=== PATIENT | male | born 1990 | race Hispanic/Latino ===

== ENCOUNTER 2019-02-12 21:49 | Inpatient (IN) | payer SELFPAY ==
[2019-02-12] MEDS ORDERED: NA CHLORIDE 0.9% 1,000 ML ONE (22:45)
[2019-02-12] MEDS ORDERED: FENTANYL CITR 100 MCG/2 ML ONE ×2 (22:45→23:56)
[2019-02-12 22:55] LABS: Absolute Lymphocytes (CBC) 0.6 K/uL (0.7-4.9); Absolute Monocytes 0.6 K/uL (0.1-1.3); Absolute Neutrophil 12.5 K/uL (1.8-8.0); Basophils % 0.6 % (0-1.3); Eosinophils % 0.7 % (0-4.4); Hematocrit 47.5 % (39.6-49.0); Lymphocytes % 4.2 % (15.3-44.8); MPV 9.7 fL (7.6-11.3); Monocytes % 4.1 % (3.3-12.3)
[2019-02-12 23:37] LABS: Albumin 3.8 g/dL (3.4-5.0); Bilirubin Direct 0.2 mg/dL (0-0.2); Bilirubin Total 0.7 mg/dL (0.2-1.0); Potassium 3.8 mmol/L (3.5-5.1); Protein, Total 7.7 g/dL (6.4-8.2)
[2019-02-12 23:37] LABS: Barbiturates NEGATIVE (NEGATIVE); Benzodiazepines NEGATIVE (NEGATIVE); Cocaine NEGATIVE (NEGATIVE); METHAMPHETAM NEGATIVE (NEGATIVE); Methadone NEGATIVE (NEGATIVE); Opiates NEGATIVE (NEGATIVE); Phencyclidine NEGATIVE (NEGATIVE); THC Cannibis POSITIVE (NEGATIVE)
[2019-02-12 23:40] LABS: Urine Bacteria <20 /HPF (NONE SEEN); Urine Culture Reflex Order NOT NEEDED; Urine RBC NONE SEEN /HPF (NONE SEEN)
[2019-02-12 23:41] LABS: Urine Blood NEGATIVE (NEG); Urine Glucose NEGATIVE (NEG); Urine Protein TRACE (NEG); Urine pH 6.5 (5.0-7.0)
[2019-02-13] MEDS ORDERED: NA CHLORIDE 0.9% 1,000 ML ONE ×2 (00:02→02:10)
[2019-02-13 00:05] LABS: Blood Morphology Comment NOT SEEN (NOT SEEN); Platelet Estimate ADEQ; Urine White Blood Cell Casts OK
[2019-02-13] MEDS ORDERED: ONDANSETRON 4 MG/2 ML VIAL ONE (01:41)
--- NOTE | 2019-02-13 01:48 | ER ---
Nurse's Notes [facility] Name: Mohit Travis Age: 28 yrs Sex: Male : 1990 Arrival Date: 02/12/2019 Time: 21:56 Bed 5 Private MD: Diagnosis: Rhabdomyolysis;Cyclical vomiting, intractable Presentation: 02/12 22:02 Presenting complaint: Patient states: L low back pain that radiates to lower abd with aa1 fever and vomiting since this am. Transition of care: patient was not received from another setting of care. Onset of symptoms was February 12, 2019. Risk Assessment: Do you want to hurt yourself or someone else? Patient reports no desire to harm self or others. Initial Sepsis Screen: Does the patient meet any 2 criteria? No. Patient's initial sepsis screen is negative. Does the patient have a suspected source of infection? No. Patient's initial sepsis screen is negative. Care prior to arrival: None. 22:02 Method Of Arrival: Wheelchair aa1 22:02 Acuity: REJI 3 aa1 Triage Assessment: 22:03 General: Appears in no apparent distress. uncomfortable, Behavior is calm, cooperative, aa1 appropriate for age. Historical: - Allergies: 22:03 No Known Allergies; aa1 - Home Meds: 22:03 None [Active]; aa1 - PMHx: 22:03 rhabdomyolysis; kidney problems; aa1 - PSHx: 22:03 None; aa1 - Immunization history:: Flu vaccine is not up to date. - Social history:: Smoking status: Patient/guardian denies using tobacco. - Ebola Screening: : No symptoms or risks identified at this time. Screenin:58 Abuse screen: Denies threats or abuse. Nutritional screening: No deficits noted. ea Tuberculosis screening: No symptoms or risk factors identified. Fall Risk Assessment: 22:05 General: Appears in no apparent distress. uncomfortable, Behavior is calm, cooperative, rr5 appropriate for age, Reports fever for. Pain: Complains of pain in abdomen Pain radiates to back Pain currently is 10 out of 10 on a pain scale. Quality of pain is described as aching, Pain began gradually, Is intermittent. 22:05 Neuro: Level of Consciousness is awake, alert, obeys commands, Oriented to person, rr5 place, time, situation, Appropriate for age. Cardiovascular: Capillary refill < 3 seconds Patient's skin is warm and dry. Respiratory: Airway is patent Respiratory effort is even, unlabored, Respiratory pattern is regular, symmetrical. GI: Abdomen is distended, obese, Bowel sounds present X 4 quads. Abdomen is tender to palpation. : No signs and/or symptoms were reported regarding the genitourinary system. EENT: No signs and/or symptoms were reported regarding the EENT system. Derm: Skin is intact, Skin temperature is warm. Musculoskeletal: Capillary refill < 3 seconds, Range of motion: intact in all extremities. 23:00 Reassessment: Patient appears in no apparent distress at this time. Patient is alert, rr5 oriented x 3, equal unlabored respirations, skin warm/dry/pink. Patient states symptoms have improved. 02/13 00:00 Reassessment: Patient appears in no apparent distress at this time. Patient is alert, rr5 oriented x 3, equal unlabored respirations, skin warm/dry/pink. went to CT via wheelchair. 00:19 Reassessment: Patient appears in no apparent distress at this time. No changes from rr5 previously documented assessment. back from CT scan. 01:30 Reassessment: Patient appears in no apparent distress at this time. Patient is alert, rr5 oriented x 3, equal unlabored respirations, skin warm/dry/pink. no complaints made. ED provider re examine the patient. 01:50 Reassessment: Patient appears in no apparent distress at this time. Patient is alert, rr5 oriented x 3, equal unlabored respirations, skin warm/dry/pink. patient agreed to stay for admission. 03:00 Reassessment: Patient appears in no apparent distress at this time. asleep on bed rr5 comfortably. 04:20 Reassessment: Patient appears in no apparent distress at this time. Patient and/or cc3 family updated on plan of care and expected duration. Pain level reassessed. Patient is alert, oriented x 3, equal unlabored respirations, skin warm/dry/pink. 05:00 Reassessment: Patient appears in no apparent distress at this time. Patient and/or cc3 family updated on plan of care and expected duration. Pain level reassessed. Patient is alert, oriented x 3, equal unlabored respirations, skin warm/dry/pink. Patient for admission, room available at 416, called for report but was told that the nurse who will receive will just call back. 05:15 Reassessment: Report called to Vinny WINTERS on fourth floor. ea Vital Signs: 02/12 22:03 BP 116 / 71; Pulse 113; Resp 20; Temp 99.8(O); Pulse Ox 99% on R/A; Weight 102.06 kg; aa1 Height 5 ft. 6 in. (167.64 cm); Pain 10/10; 22:58 BP 144 / 59; Pulse 105; Resp 18; Pulse Ox 99% ; ea 23:30 BP 135 / 59; Pulse 107; Resp 17; Pulse Ox 99% ; Pain 8/10; rr5 02/13 00:30 BP 131 / 60; Pulse 110; Resp 17; Pulse Ox 98% on R/A; rr5 02:00 BP 126 / 54; Pulse 95; Resp 17; Temp 99; Pulse Ox 98% on R/A; rr5 03:00 BP 137 / 54; Pulse 98; Resp 17; Temp 99.7; Pulse Ox 99% on R/A; rr5 05:11 BP 116 / 59; Pulse 86; Resp 18 S; Pulse Ox 96% on R/A; cc3 02/12 22:03 Body Mass Index 36.32 (102.06 kg, 167.64 cm) aa1 ED Course: 02/12 21:56 Patient arrived in ED. es 22:02 Triage completed. aa1 22:03 Arm band placed on left wrist. Patient placed in an exam room, on a stretcher. aa1 22:05 Patient has correct armband on for positive identification. Placed in gown. Bed in low rr5 position. Call light in reach. Side rails up X2. Pulse ox on. NIBP on. 22:06 Bo Heart MD is Attending Physician. gs 22:14 Benjy Kim, SINGH is Primary Nurse. rr5 22:40 Initial lab(s) drawn, by me, sent to lab. Inserted saline lock: 20 gauge in right rr5 forearm, using aseptic technique. Blood collected. 23:38 Notified ED physician of a critical lab result(s). cpk of 1538. fc 02/13 00:23 CT Abd/Pelvis - W/Contrast In Process Unspecified. EDMS 01:45 Marci Cummings MD is Hospitalizing Provider. gs 02:55 Awaiting bed assignment. rr5 05:16 No provider procedures requiring assistance completed. Patient admitted, IV remains in ea place. Administered Medications: 02/12 22:40 Drug: NS 0.9% 1000 ml Route: IV; Rate: 1 bolus; Site: right forearm; rr5 23:30 Follow up: Response: No adverse reaction; IV Status: Completed infusion; IV Intake: rr5 1000ml 22:41 Drug: fentaNYL (PF) 50 mcg Route: IVP; Site: right forearm; rr5 23:30 Follow up: Response: No adverse reaction rr5 23:43 Drug: fentaNYL (PF) 50 mcg Route: IVP; Site: right antecubital; ea 02/13 01:00 Follow up: Response: No adverse reaction rr5 02/12 23:49 Drug: NS 0.9% 1000 ml Route: IV; Rate: 1 bolus; Site: right antecubital; ea 02/13 01:15 Follow up: Response: No adverse reaction; IV Status: Completed infusion; IV Intake: rr5 1000ml 01:34 Drug: Zofran 4 mg Route: IVP; Site: right antecubital; ea 02:30 Follow up: Response: No adverse reaction rr5 02:00 Drug: NS 0.9% 1000 ml Route: IV; Rate: 150 ml/hr; Site: right forearm; rr5 05:17 Follow up: IV Status: Infusion continued upon admission ea Intake: 02/12 23:30 IV: 1000ml; Total: 1000ml. rr5 02/13 01:15 IV: 1000ml; Total: 2000ml. rr5 Output: 02/12 23:00 Urine: 200ml (Voided); Total: 200ml. rr5 02/13 00:35 Urine: 350ml (Voided); Total: 550ml. rr5 Outcome: 01:46 Decision to Hospitalize by Provider. gs 02:00 Admitted to Med/surg accompanied by tech, room 416, on monitor, with chart, Report ea called to Vinny WINTERS 02:00 Condition: stable 02:00 Instructed on the need for admit. 05:32 Patient left the ED. cc3 Signatures: Dispatcher [employer] Nandini Mortensen RN RN aa1 KwanFarheen valencia Felicia, RN RN fc Tatiana Edouard RN RN ea Bo Heart MD MD Marcia Monsivais 3 Benjy Kim RN RN rr5
--- NOTE | 2019-02-13 01:48 | EDPHYS ---
Physician Documentation [facility] Name: Mohit Travis Age: 28 yrs Sex: Male : 1990 Arrival Date: 02/12/2019 Time: 21:56 Bed 5 Private MD: ED Physician Bo Heart HPI: 02/13 01:48 This 28 yrs old Male presents to ER via Wheelchair with complaints of gs Abdominal Pain, Back Pain, ABD SWELLING. 01:48 The patient presents with abdominal pain that is diffuse. Onset: The symptoms/episode gs began/occurred this morning. The symptoms do not radiate. Associated signs and symptoms: Pertinent positives: vomiting. The symptoms are described as crampy. Modifying factors: The symptoms are alleviated by nothing, the symptoms are aggravated by nothing. Severity of pain: At its worst the pain was moderate in the emergency department the pain is unchanged. The patient has experienced similar episodes in the past, a few times. generalized body aches same with previous rhabdo. Historical: - Allergies: 02/12 22:03 No Known Allergies; aa1 - Home Meds: 22:03 None [Active]; aa1 - PMHx: 22:03 rhabdomyolysis; kidney problems; aa1 - PSHx: 22:03 None; aa1 - Immunization history:: Flu vaccine is not up to date. - Social history:: Smoking status: Patient/guardian denies using tobacco. - Ebola Screening: : No symptoms or risks identified at this time. ROS: 02/13 01:48 All other systems are negative. gs Exam: 01:48 Head/Face: Normocephalic, atraumatic. Eyes: Pupils equal round and reactive to light, gs extra-ocular motions intact. Lids and lashes normal. Conjunctiva and sclera are non-icteric and not injected. Cornea within normal limits. Periorbital areas with no swelling, redness, or edema. ENT: Nares patent. No nasal discharge, no septal abnormalities noted. Tympanic membranes are normal and external auditory canals are clear. Oropharynx with no redness, swelling, or masses, exudates, or evidence of obstruction, uvula midline. Mucous membranes moist. Neck: Trachea midline, no thyromegaly or masses palpated, and no cervical lymphadenopathy. Supple, full range of motion without nuchal rigidity, or vertebral point tenderness. No Meningismus. Chest/axilla: Normal chest wall appearance and motion. Nontender with no deformity. No lesions are appreciated. 01:48 Back: No spinal tenderness. No costovertebral tenderness. Full range of motion. Skin: Warm, dry with normal turgor. Normal color with no rashes, no lesions, and no evidence of cellulitis. MS/ Extremity: Pulses equal, no cyanosis. Neurovascular intact. Full, normal range of motion. Neuro: Awake and alert, GCS 15, oriented to person, place, time, and situation. Cranial nerves II-XII grossly intact. Motor strength 5/5 in all extremities. Sensory grossly intact. Cerebellar exam normal. Normal gait. 01:48 Constitutional: The patient appears alert, awake. 01:48 Cardiovascular: Rate: tachycardic, Rhythm: regular, Pulses: no pulse deficits are appreciated. 01:48 Respiratory: Exam negative for acute changes, the patient does not display signs of respiratory distress, Respirations: normal. 01:48 Abdomen/GI: Inspection: distension, that is mild, Palpation: moderate abdominal tenderness, in all quadrants, rebound tenderness, is not appreciated. Vital Signs: 02/12 22:03 BP 116 / 71; Pulse 113; Resp 20; Temp 99.8(O); Pulse Ox 99% on R/A; Weight 102.06 kg; aa1 Height 5 ft. 6 in. (167.64 cm); Pain 10/10; 22:58 BP 144 / 59; Pulse 105; Resp 18; Pulse Ox 99% ; ea 23:30 BP 135 / 59; Pulse 107; Resp 17; Pulse Ox 99% ; Pain 8/10; rr5 02/13 00:30 BP 131 / 60; Pulse 110; Resp 17; Pulse Ox 98% on R/A; rr5 02:00 BP 126 / 54; Pulse 95; Resp 17; Temp 99; Pulse Ox 98% on R/A; rr5 03:00 BP 137 / 54; Pulse 98; Resp 17; Temp 99.7; Pulse Ox 99% on R/A; rr5 05:11 BP 116 / 59; Pulse 86; Resp 18 S; Pulse Ox 96% on R/A; cc3 02/12 22:03 Body Mass Index 36.32 (102.06 kg, 167.64 cm) aa1 MDM: 02/12 22:17 Patient medically screened. 02/13 01:48 Differential diagnosis: appendicitis, diverticulitis, gastritis, non-specific abd pain, gs pancreatitis. Data reviewed: vital signs, nurses notes. Counseling: I had a detailed discussion with the patient and/or guardian regarding: the historical points, exam findings, and any diagnostic results supporting the discharge/admit diagnosis. Response to treatment: better but still with vomiting cannot hydrate himself for op rhabdomyolysis treatment, will admit. 02/12 22:19 Order name: Basic Metabolic Panel; Complete Time: 23:44 02/12 22:19 Order name: CBC with Diff; Complete Time: 00:17 02/12 22:19 Order name: Hepatic Function; Complete Time: 23:44 02/12 22:19 Order name: Lipase; Complete Time: 23:44 02/12 22:19 Order name: CPK; Complete Time: 23:44 02/12 22:19 Order name: Urine Drug Screen; Complete Time: 23:44 02/12 22:19 Order name: Urine Microscopic Only; Complete Time: 23:44 02/12 23:19 Order name: Urine Dipstick--Ancillary (enter results); Complete Time: 23:44 [facility] 02/12 23:45 Order name: CT Abd/Pelvis - W/Contrast 02/13 00:07 Order name: CBC Smear Scan; Complete Time: 00:17 [facility] 02/13 00:17 Order name: Lactate; Complete Time: 01:07 02/13 00:17 Order name: Procalcitonin; Complete Time: 01:26 02/13 04:38 Order name: Myoglobin [facility] 02/12 22:19 Order name: IV Saline Lock; Complete Time: 22:48 02/12 22:19 Order name: Labs collected and sent; Complete Time: 22:48 02/12 22:19 Order name: Urine Dipstick-Ancillary (obtain specimen); Complete Time: 23:24 Administered Medications: 02/12 22:40 Drug: NS 0.9% 1000 ml Route: IV; Rate: 1 bolus; Site: right forearm; rr5 23:30 Follow up: Response: No adverse reaction; IV Status: Completed infusion; IV Intake: rr5 1000ml 22:41 Drug: fentaNYL (PF) 50 mcg Route: IVP; Site: right forearm; rr5 23:30 Follow up: Response: No adverse reaction rr5 23:43 Drug: fentaNYL (PF) 50 mcg Route: IVP; Site: right antecubital; ea 02/13 01:00 Follow up: Response: No adverse reaction rr5 02/12 23:49 Drug: NS 0.9% 1000 ml Route: IV; Rate: 1 bolus; Site: right antecubital; ea 02/13 01:15 Follow up: Response: No adverse reaction; IV Status: Completed infusion; IV Intake: rr5 1000ml 01:34 Drug: Zofran 4 mg Route: IVP; Site: right antecubital; ea 02:30 Follow up: Response: No adverse reaction rr5 02:00 Drug: NS 0.9% 1000 ml Route: IV; Rate: 150 ml/hr; Site: right forearm; rr5 05:17 Follow up: IV Status: Infusion continued upon admission ea Disposition: 02/13/19 01:46 Hospitalization ordered by Marci Cummings for Inpatient Admission. Preliminary diagnosis are Rhabdomyolysis, Cyclical vomiting, intractable. - Bed requested for Telemetry/MedSurg (Inpatient). - Status is Inpatient Admission. cc3 - Condition is Stable. - Problem is new. - Symptoms have improved. UTI on Admission? No Signatures: Dispatcher [employer] EDMS Edna Gonzales RN Nandini Sena RN RN aa1 Tatiana Edouard RN Bo Gama ea, MD MD Marcia Monsivais 3 Benjy Kim RN RN rr5 Corrections: (The following items were deleted from the chart) 04:20 01:46 Hospitalization Ordered by Marci Cummings MD for Inpatient Admission. Preliminary diagnosis is Rhabdomyolysis; Cyclical vomiting, intractable. Bed requested for Telemetry/MedSurg (Inpatient). Status is Inpatient Admission. Condition is Stable. Problem is new. Symptoms have improved. UTI on Admission? No. 05:32 04:20 02/13/2019 01:46 Hospitalization Ordered by Marci Cummings MD for Inpatient cc3 Admission. Preliminary diagnosis is Rhabdomyolysis; Cyclical vomiting, intractable. Bed requested for Telemetry/MedSurg (Inpatient). Status is Inpatient Admission. Condition is Stable. Problem is new. Symptoms have improved. UTI on Admission? No. mw
--- NOTE | 2019-02-13 04:25 | P.HP ---
Certification for Inpatient Patient admitted to: Inpatient With expected LOS: >2 Midnights Practitioner: I am a practitioner with admitting privileges, knowledge of patient current condition, hospital course, and medical plan of care. Services: Services provided to patient in accordance with Admission requirements found in Title 42 Section 412.3 of the Code of Federal Regulations Patient History Date of Service: 02/13/19 Reason for admission: rhabdomyolisis History of Present Illness: Mr Brock Oviedo is a 28 years old male with history of rhabdomyolysis leading acute renal failure (according to the patient statement), that's happened in [place] a several years ago. He said that after that has had more similar episodes. 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 Then, he stat feeling abdominal pain, specially LLQ, radiated to left flank and back. The pain level was 8/10, associated with nausea and vomiting. At arrival, he has had low grade fever 99.8F. WBC 13.8, CK 1536, renal function within normal limits, UA was unremarkable. At my encounter he was still nauseated. Home medications list reviewed: Yes - Past Medical/Surgical History -: rhabdomyolisis -: acute kidney injury - Family History Family History: Reviewed- Non-Contributory - Social History Smoking Status: Former smoker Alcohol use: No CD- Drugs: No Place of Residence: Home Review of Systems 10-point ROS is otherwise unremarkable Physical Examination - Physical Exam General: Alert, In no apparent distress HEENT: Atraumatic, PERRLA, Mucous membr. moist/pink, EOMI, Sclerae nonicteric Neck: Supple, 2+ carotid pulse no bruit, No LAD, Without JVD or thyroid abnormality Respiratory: Clear to auscultation bilaterally, Normal air movement Cardiovascular: Regular rate/rhythm, Normal S1 S2 Gastrointestinal: Normal bowel sounds, Non-distended, No tenderness, No guarding Musculoskeletal: No tenderness Integumentary: No rashes Neurological: Normal speech, Normal strength at 5/5 x4 extr, Normal tone, Normal affect Lymphatics: No axilla or inguinal lymphadenopathy - Studies Laboratory Data (last 24 hrs) 02/12/19 22:40: WBC 13.8 H, Hgb 15.5, Hct 47.5, Plt Count 211 02/12/19 22:40: Sodium 140, Potassium 3.8, BUN 18, Creatinine 1.15, Glucose 98, Total Bilirubin 0.7, AST 40 H, ALT 58, Alkaline Phosphatase 52, Lipase 82 Assessment and Plan - Problems (Diagnosis) (1) Rhabdomyolysis Current Visit: Yes Status: Acute Qualifiers: Rhabdomyolysis type: non-traumatic Qualified Code(s): M62.82 - Rhabdomyolysis (2) Nausea and vomiting Current Visit: Yes Status: Acute Qualifiers: Vomiting type: unspecified Vomiting Intractability: non-intractable Qualified Code(s): R11.2 - Nausea with vomiting, unspecified - Plan The patient will be admitted to the hospital due to rhabdomyolysis. CK is not significantly elevated, however, is enough to fit for diagnosis of rhabdo. 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 Will check myoglobin, however , UA shows no abnormalities. CT abd/pelvis shows no acute abnormalities. I think is appropriate to admit the patient for IV fluids infusion, monitor renal function and CK level, start clear liquid diet and advance as tolerated. Continue symptomatic medication fo nausea/vomiting and generalized body ache. - Advance Directives Does patient have a Living Will: No Does patient have a Durable POA for Healthcare: No - Code Status/Comfort Care Code Status Assessed: Yes Code Status: Full Code
[2019-02-13] MEDS ORDERED: ONDANSETRON 4 MG/2 ML VIAL IV PRN (05:44)
[2019-02-13] MEDS: NA CHLORIDE 0.9% 1,000 ML IV SCH ×4 (05:44→23:38)
[2019-02-13] MEDS: ENOXAPARIN 40 MG/0.4 ML SQ SCH (07:54)
[2019-02-13] MEDS ORDERED: POTASSIUM CL SA 10 MEQ TAB PO ONE (09:00)
--- NOTE | 2019-02-13 10:18 | RAD REPORT ---
EXAM DESCRIPTION: CT - Abdomen Pelvis W Contrast - 02/13/2019 12:22 am CLINICAL HISTORY: 28 years Male ABD PAIN COMPARISON: None TECHNIQUE: Images were obtained in axial, sagittal, and coronal planes. Intravenous contrast was adm inistered. Arterial and venous phase imaging was performed. This exam was performed according to our departmental dose-optimization program which includes use of Automated Exposure Control, adjustment of the mA and/or kV according to patient size and/or use of i terative reconstruction technique. FINDINGS: Fatty change involving the liver. Spleen is enlarged measuring 13.3 cm in greatest dimensi on. Unremarkable pancreas, gallbladder, and adrenal glands bilaterally. Gastric distention with marke d fluid and debris. No obstructing renal calcifications bilaterally. No hydronephrosis bilaterally. No renal parenchymal abnormalities seen. Appendix not well identified however no secondary signs for appendicitis. No bowel obstruction, perfo ration, or inflammation. No abnormality abdominal aorta or portal vein. No adenopathy or abnormal fluid collections seen. Dependent atelectatic change lower lungs bilaterally. No acute osseous abnormality. IMPRESSION: No acute intra-abdominal abnormality. Fatty change involving the liver. Enlarged spleen. Electronically signed by: Tawnya Lemus MD 02/13/2019 12:34 AM CDT Due to temporary technical issues with the PACS/Fluency reporting system, reports are being signed by the in house radiologist as a courtesy to ensure prompt reporting. The interpreting radiologist is f ully responsible for the content of the report.
[2019-02-13 12:33] LABS: ALT/SGPT 40 U/L (12-78); AST/SGOT 26 U/L (15-37); Albumin 3.2 g/dL (3.4-5.0); Alkaline Phosphatase 42 U/L (45-117); BUN Blood Urea Nitrogen 11 mg/dL (7-18); Bicarbonate 26 mmol/L (21-32); Bilirubin Total 0.6 mg/dL (0.2-1.0); Creatine Phosphokinase 949 U/L (39-308); Glucose Level 87 mg/dL (74-106); Potassium 3.8 mmol/L (3.5-5.1); Protein, Total 6.3 g/dL (6.4-8.2); Sodium Level 141 mmol/L (136-145)
[2019-02-13] MEDS: TRAMADOL HCL 50 MG TAB PO PRN ×2 (13:22→21:02)
--- NOTE | 2019-02-13 16:27 | PN ---
Date of Progress Note: 02/13/2019 History: The patient is seen and examined. Chart reviewed and case discussed with RN. Treatment pl an explained. All questions answered. The patient is still complaining of some muscle aches, also h as some lower abdominal pain. Medications: List reviewed. Physical Examination: Vital Signs: Temperature 98.8, heart rate 82, blood pressure 119/54, respirations 21, O2 98% on room air. General: Awake, alert, and oriented x3. Obese male. BMI 35. In some mild distress due to pain. CV: S1 and S2. Regular rate and rhythm. Peripheral pulses present. Respiratory: Moving air well bilaterally. No wheezing or stridor. Gastrointestinal: Abdomen is soft. Mild tenderness to palpation in the suprapubic region. No rebou nd or guarding. Extremities: No clubbing, cyanosis, or edema. Neurologic: Nonfocal. Cranial nerves 2-12 intact grossly. No focal neurological deficit. Speech i s normal. Laboratory Data: Sodium 141, potassium 3.8, chloride 111, CO2 26, BUN 11, creatinine 0.95, glucose 8 7, calcium 7.4. CK is 949, myoglobin is pending. Assessment And Plan: A 28-year-old male with: 1.Acute rhabdomyolysis nontraumatic. CK levels improving. We will continue IV fluid hydration. Ki dney function has also improved secondary to dehydration as well as his occupation. 2.Non-intractable nausea and vomiting, improved. We will advance diet as tolerated. The patient is still having some abdominal discomfort. 3.Generalized abdominal pain. CT scan of the abdomen did not show any acute abnormality. It does s how some fatty liver change and enlarged spleen. There is some gastric distention with marked fluid and debris. Continue antiemetics. 4.Neutrophilic leukocytosis. 5.Marijuana abuse, counseled. 6.Obesity, BMI 35. 7.Deep venous thrombosis prophylaxis with Lovenox. We will advance diet as tolerated. Monitor CK level. Likely discharge in a.m. if continues to impro ve. SA/MODL Voice ID: [id number] Report ID: [id number]
[2019-02-14] MEDS: TRAMADOL HCL 50 MG TAB PO PRN ×2 (06:09→17:32)
[2019-02-14] MEDS: NA CHLORIDE 0.9% 1,000 ML IV SCH ×2 (06:09→16:08)
[2019-02-14 06:21] LABS: Absolute Lymphocytes (CBC) 2.1 K/uL (0.7-4.9); Absolute Monocytes 0.8 K/uL (0.1-1.3); Absolute Neutrophil 4.3 K/uL (1.8-8.0); Basophils % 0.3 % (0-1.3); Eosinophils % 4.3 % (0-4.4); Hematocrit 43.5 % (39.6-49.0); Lymphocytes % 27.9 % (15.3-44.8); MPV 9.2 fL (7.6-11.3); Monocytes % 10.6 % (3.3-12.3); RBC Red Blood Cell Count 5.52 M/uL (4.33-5.43)
[2019-02-14 06:26] VITALS: BMI 35.6
[2019-02-14 06:36] LABS: Potassium 4.4 mmol/L (3.5-5.1)
[2019-02-14 06:40] LABS: Magnesium 2.2 mg/dL (1.8-2.4)
[2019-02-14] MEDS: ENOXAPARIN 40 MG/0.4 ML SQ SCH (08:56)
--- NOTE | 2019-02-14 17:19 | P.PN ---
Subjective Date of Service: 02/14/19 Chief Complaint: rhabdomyolisis Subjective: Improving Pt reports dizziness. Has had some episodes of borderline blood glucose levels. Was not able to ambulate without getting dizzy. Review of Systems 10-point ROS is otherwise unremarkable General: As per HPI Physical Examination - Vital Signs Temperature: 98.2 F Blood Pressure: 132/88 Pulse: 72 Respirations: 20 Pulse Ox (%): 96 - Physical Exam General: Alert, Oriented x3, Mild distress, Obese HEENT: Atraumatic, PERRLA, EOMI Neck: Supple, JVD not distended Respiratory: Clear to auscultation bilaterally, Normal air movement Cardiovascular: No edema, Normal pulses, Regular rate/rhythm, Normal S1 S2 Gastrointestinal: Normal bowel sounds, Soft and benign, Non-distended, No tenderness Musculoskeletal: No tenderness Integumentary: No rashes, No erythema Neurological: Normal speech, Normal tone, Normal affect - Studies Laboratory Last Values WBC 7.5 K/uL (4.3-10.9) D 02/14/19 06:03 RBC 5.52 M/uL (4.33-5.43) H 02/14/19 06:03 Hgb 14.1 g/dL (13.6-17.9) 02/14/19 06:03 Hct 43.5 % (39.6-49.0) 02/14/19 06:03 MCV 78.8 fL (80-100) L 02/14/19 06:03 MCH 25.5 pg (27.0-35.0) L 02/14/19 06:03 MCHC 32.4 g/dL (32.0-36.0) 02/14/19 06:03 RDW 13.9 % (12.1-15.2) 02/14/19 06:03 Plt Count 182 K/uL (152-406) 02/14/19 06:03 MPV 9.2 fL (7.6-11.3) 02/14/19 06:03 Neutrophils % 56.9 % (41.7-73.7) 02/14/19 06:03 Lymphocytes % 27.9 % (15.3-44.8) 02/14/19 06:03 Monocytes % 10.6 % (3.3-12.3) 02/14/19 06:03 Eosinophils % 4.3 % (0-4.4) 02/14/19 06:03 Basophils % 0.3 % (0-1.3) 02/14/19 06:03 Absolute Neutrophils 4.3 K/uL (1.8-8.0) 02/14/19 06:03 Absolute Lymphocytes 2.1 K/uL (0.7-4.9) 02/14/19 06:03 Absolute Monocytes 0.8 K/uL (0.1-1.3) 02/14/19 06:03 Absolute Eosinophils 0.3 K/uL (0-0.5) 02/14/19 06:03 Absolute Basophils 0.0 K/uL (0-0.5) 02/14/19 06:03 Morphology Comment Not seen (NOT SEEN) 02/12/19 22:40 Sodium 141 mmol/L (136-145) 02/14/19 06:03 Potassium 4.4 mmol/L (3.5-5.1) 02/14/19 06:03 Chloride 111 mmol/L (98-107) H 02/14/19 06:03 Carbon Dioxide 30 mmol/L (21-32) 02/14/19 06:03 BUN 8 mg/dL (7-18) 02/14/19 06:03 Creatinine 1.09 mg/dL (0.55-1.3) 02/14/19 06:03 Estimated GFR 80 mL/min (=/>90) L 02/14/19 06:03 Glucose 86 mg/dL (74-106) 02/14/19 06:03 POC Glucose 95 mg/dl (65-120) 02/14/19 13:17 Lactic Acid 1.1 mmol/L (0.4-2.0) 02/13/19 00:40 Calcium 8.0 mg/dL (8.5-10.1) L 02/14/19 06:03 Magnesium 2.2 mg/dL (1.8-2.4) 02/14/19 06:03 Total Bilirubin 0.6 mg/dL (0.2-1.0) 02/13/19 11:55 Direct Bilirubin 0.2 mg/dL (0-0.2) 02/12/19 22:40 AST 26 U/L (15-37) 02/13/19 11:55 ALT 40 U/L (12-78) 02/13/19 11:55 Alkaline Phosphatase 42 U/L (45-117) L 02/13/19 11:55 Creatine Kinase 675 U/L (39-308) H 02/14/19 06:03 Serum Total Protein 6.3 g/dL (6.4-8.2) L 02/13/19 11:55 Albumin 3.2 g/dL (3.4-5.0) L 02/13/19 11:55 Globulin 3.1 g/dL (2.3-3.5) D 02/13/19 11:55 Albumin/Globulin Ratio 1.0 (1.1-1.8) L 02/13/19 11:55 Lipase 82 U/L (73-393) 02/12/19 22:40 Procalcitonin 0.06 ng/mL (<0.50) 02/12/19 22:40 Urine pH 6.5 (5.0-7.0) 02/12/19 23:19 Ur Specific Duarte 1.020 (1.005-1.030) 02/12/19 23:19 Urine Ketones Trace (NEG) 02/12/19 23:19 Urine Blood Negative (NEG) 02/12/19 23:19 Urine Nitrite Negative (NEG) 02/12/19 23:19 Urine RBC None seen /HPF (NONE SEEN) 02/12/19 23:10 Urine WBC <5 /HPF (<5) 02/12/19 23:10 Ur Squamous Epith Cells <5 /HPF (NONE SEEN) 02/12/19 23:10 Urine Bacteria <20 /HPF (NONE SEEN) 02/12/19 23:10 Urine Culture Reflexed Not needed 02/12/19 23:10 Urine Glucose Negative (NEG) 02/12/19 23:19 Urine Total Protein Trace (NEG) 02/12/19 23:19 Opiates Screen Negative (NEGATIVE) 02/12/19 23:10 Methadone Screen Negative (NEGATIVE) 02/12/19 23:10 Ur Barbiturates Screen Negative (NEGATIVE) 02/12/19 23:10 Ur Phencyclidine Scrn Negative (NEGATIVE) 02/12/19 23:10 Amphetamines Screen Negative (NEGATIVE) 02/12/19 23:10 Benzodiazepines Screen Negative (NEGATIVE) 02/12/19 23:10 Cocaine Screen Negative (NEGATIVE) 02/12/19 23:10 Ur THC Screen Positive (NEGATIVE) H 02/12/19 23:10 Medications List Reviewed: Yes Assessment And Plan - Plan Assessment And Plan: A 28-year-old male with: 1. Acute rhabdomyolysis nontraumatic. CK levels improving. We will continue IV fluid hydration. Kidney function has also improved. 2. Dizziness. Orthostatics negative. Blood glucose levels borderline. Switch to D5 1/2 NS. PT eval. Likely related to dehydration. 3. Non-intractable nausea and vomiting, improved. We will advance diet as tolerated. Abdominal pain resolved. 4. Generalized abdominal pain. CT scan of the abdomen did not show any acute abnormality. It does show some fatty liver change and enlarged spleen. There is some gastric distention with marked fluid and debris. Continue antiemetics. Resolved 5. Neutrophilic leukocytosis. Resolved. 6. Marijuana abuse, counseled. 7. Obesity, BMI 35. 8. Deep venous thrombosis prophylaxis with Lovenox. Monitor CK levels. DC in am if clinically improved. Discharge Plan: Home Plan to discharge in: 24 Hours
[2019-02-14] MEDS: D5 0.45 NS 1,000 ML IV SCH (17:31)
[2019-02-14] MEDS ORDERED: D5 0.45 NS 1,000 ML IV ONE (17:44)
[2019-02-15] MEDS: TRAMADOL HCL 50 MG TAB PO PRN (01:23)
[2019-02-15] MEDS: D5 0.45 NS 1,000 ML IV SCH ×2 (01:23→12:53)
[2019-02-15 06:14] LABS: Potassium 4.2 mmol/L (3.5-5.1)
[2019-02-15] MEDS: ENOXAPARIN 40 MG/0.4 ML SQ SCH (08:36)
[2019-02-15 11:06] VITALS: O2SAT 98
[2019-02-15] MEDS ORDERED: MECLIZINE HCL 12.5 MG TAB PO PRN (14:58)
[2019-02-15] MEDS ORDERED: NA CHLORIDE 0.9% 1,000 ML IV SCH (15:00)
--- NOTE | 2019-02-15 15:19 | P.DS ---
Admission Date: 02/13/19 Discharge Date: 02/15/19 Disposition: ROUTINE DISCHARGE Discharge Condition: GOOD Reason for Admission: rhabdomyolisis Brief History of Present Illness: From H&P Mr Brock Oviedo is a 28 years old male with history of rhabdomyolysis leading acute renal failure (according to the patient statement), that's happened in [place] a several years ago. He said that after that has had more similar episodes. 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 Then, he stat feeling abdominal pain, specially LLQ, radiated to left flank and back. The pain level was 8/10, associated with nausea and vomiting. At arrival, he has had low grade fever 99.8F. WBC 13.8, CK 1536, renal function within normal limits, UA was unremarkable. At my encounter he was still nauseated. Hospital Course: Pt is a 28 yo M who comes in with rhabdomyolysis due to poor hydration and strenuous activity from construction work. Patient was started on IVFs and his CK level improved. He had abdominal pain, N/V. Patient reported dizziness and had difficulty ambulating. Patient improved slowly and was able to ambulate. He was able to tolerate a regular diet and his N/V resolved. He did not have any nystagmus. Orthostatic VS were negative. He was counseled regarding his BMI. Patient was evaluated by PT and did well. He does report blurry vision and he is unable to read the board from his bed. He is nearsighted and needs to have his eyesight evaluated by executive chef assistant. No working out or construction work etc. until Tuesday. Remain well hydrated. D/C diagnosis 1. Acute rhabdomyolysis nontraumatic. CK levels improving. 2. Non-intractable nausea and vomiting, resolved 3. Generalized abdominal pain. resolved 4. Neutrophilic leukocytosis. resolved 5. Marijuana abuse, counseled. 6. Obesity, BMI 35. 7. Fatty liver disease Vital Signs/Physical Exam: Temp Pulse Resp BP Pulse Ox 97.8 F 70 20 112/80 98 02/15/19 12:00 02/15/19 12:00 02/15/19 12:00 02/15/19 12:00 02/15/19 12:00 General: Alert, In no apparent distress, Oriented x3 HEENT: Atraumatic, PERRLA, EOMI Neck: Supple, JVD not distended Respiratory: Clear to auscultation bilaterally, Normal air movement Cardiovascular: No edema, Normal pulses, Regular rate/rhythm, Normal S1 S2 Gastrointestinal: Normal bowel sounds, Soft and benign, Non-distended, No tenderness Musculoskeletal: No tenderness Integumentary: No rashes Neurological: Normal speech, Normal tone, Normal affect Laboratory Data at Discharge: WBC 7.5 K/uL (4.3-10.9) D 02/14/19 06:03 Hgb 14.1 g/dL (13.6-17.9) 02/14/19 06:03 Hct 43.5 % (39.6-49.0) 02/14/19 06:03 Plt Count 182 K/uL (152-406) 02/14/19 06:03 Sodium 140 mmol/L (136-145) 02/15/19 05:41 Potassium 4.2 mmol/L (3.5-5.1) 02/15/19 05:41 BUN 10 mg/dL (7-18) 02/15/19 05:41 Creatinine 1.09 mg/dL (0.55-1.3) 02/15/19 05:41 Glucose 99 mg/dL (74-106) 02/15/19 05:41 Magnesium 2.2 mg/dL (1.8-2.4) 02/14/19 06:03 Total Bilirubin 0.6 mg/dL (0.2-1.0) 02/13/19 11:55 AST 26 U/L (15-37) 02/13/19 11:55 ALT 40 U/L (12-78) 02/13/19 11:55 Alkaline Phosphatase 42 U/L (45-117) L 02/13/19 11:55 Triglycerides 146 mg/dL (<150) 02/15/19 05:41 Cholesterol 114 mg/dL (<200) 02/15/19 05:41 HDL Cholesterol 31 mg/dL (40-60) L 02/15/19 05:41 Cholesterol/HDL Ratio 3.68 02/15/19 05:41 Lipase 82 U/L (73-393) 02/12/19 22:40 Home Medications: Meclizine HCl [Antivert*] 25 mg PO Q6H PRN #10 tab 02/15/19 New Medications: Meclizine HCl [Antivert*] 25 mg PO Q6H PRN #10 tab PRN Reason: Dizziness Patient Discharge Instructions: Establish care w PCP. Return to ER for worsening condition. have eyesight checked by executive chef assistant Diet: calorie restricted diet. 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
[2019-02-15 16:19] VITALS: BP 122/78; TEMP 98
== END 2019-02-15 17:58 | disposition home or self-care (01) | DRG 558 ==
LOC: ER 21:49 → 4TH 02-13 04:10
PROVIDERS: ADMIT Internal Medicine; ATTEND Family Medicine
DX: M62.82 Rhabdomyolysis (principal); E86.0 Dehydration; F12.10 Cannabis abuse, uncomplicated; E66.9 Obesity, unspecified; K76.0 Fatty (change of) liver, not elsewhere classified; R16.1 Splenomegaly, not elsewhere classified; D72.828 Other elevated white blood cell count; Z68.35 Body mass index [BMI] 35.0-35.9, adult; Z87.891 Personal history of nicotine dependence
CPT/HCPCS: 36415; 74177; 80048; 80053; 80061; 80076; 80307; 81003; 81015; 82550; 82962; 83605; 83690; 83735; 83874; 84145; 85025; 97163; 99285; J1650; J2405; J3010; J7030; Q9967